=== PATIENT | male | born 1985 | race Two or more races ===

== ENCOUNTER 2019-01-14 20:03 | Emergency (ER) | payer OTHER ==
[~2019-01-14] VITALS: Ht 177.8 cm; Wt 139.3 kg
[2019-01-14 20:27] VITALS: BP 140/80
[2019-01-14] MEDS ORDERED: IBUPROFEN 800 MG TAB PO ONE (23:15)
== END 2019-01-15 01:13 | disposition home or self-care (01) ==
LOC: ER 20:16
DX: S93.402A Sprain of unspecified ligament of left ankle, initial encounter (principal); S33.5XXA Sprain of ligaments of lumbar spine, initial encounter; W01.0XXA Fall on same level from slipping, tripping and stumbling without subsequent striking against object, initial encounter; Y93.89 Activity, other specified; Y99.0 Civilian activity done for income or pay; Y92.69 Other specified industrial and construction area as the place of occurrence of the external cause
CPT/HCPCS: 72100; 73610